=== PATIENT | female | born 1945 | race Asian ===

== ENCOUNTER → 2019-03-27 | Day surgery (SDC) | payer OTHER ==
[~2019-03-27] VITALS: Ht 154.9 cm; Wt 47.6 kg
[2019-03-27 08:26] VITALS: BP 142/79
[2019-03-27 16:28] VITALS: BP 132/70
--- NOTE | 2019-03-27 18:01 | NUR ---
CALL TO PT TO INQUIRE HOW SHE IS FEELING AFTER DISCHARGE. PT STATES "FEELING OK, NO MORE BLEEDING FROM INCISION." REVIEWED PLAN OF CARE AND WHEN TO RETURN TO HOSPITAL ER FOR INCISIONAL BLEEDING, CHEST PAIN OR SHORTNESS OF BREATH. PT VERBALIZED UNDERSTANDING.
== END | disposition home or self-care (01) ==
LOC: DS 07:24 → OR 09:30 → DS 10:30
DX: K43.2 Incisional hernia without obstruction or gangrene (principal); E78.5 Hyperlipidemia, unspecified; M19.012 Primary osteoarthritis, left shoulder; Z79.899 Other long term (current) drug therapy; Z85.43 Personal history of malignant neoplasm of ovary; Z91.09 Other allergy status, other than to drugs and biological substances; Z92.21 Personal history of antineoplastic chemotherapy; Z90.710 Acquired absence of both cervix and uterus; Z90.722 Acquired absence of ovaries, bilateral
CPT/HCPCS: 49560; 49568; C1781; J0690; J1170; J2405; J2704; J2710; J3010; J3490; J7120